=== PATIENT | male | born 1955 | race Caucasian/White ===

== ENCOUNTER → 2024-09-14 13:25 | Outpatient (REF) | payer OTHER, SELFPAY | LOC: PAVMRI 13:25 | PROVIDERS: ATTENDING PHYSICIAN Otolaryngology; FAMILY PHYSICIAN Family Medicine | DX: H90.A21 Sensorineural hearing loss, unilateral, right ear, with restricted hearing on the contralateral side (principal) | CPT/HCPCS: 70553; A9575 ==

== ENCOUNTER → 2024-09-14 15:45 | Outpatient (REF) | payer OTHER, SELFPAY ==
[2024-09-14 17:12] LABS: % Basophils 0.8 % (0-2); % Eosinophils 4.4 % (0-6); % Immature Granulocytes 0.9 % (0-0.5); % Lymphocytes 17.3 % (20.5-51.1); % Monocytes 9.7 % (1.7-9.3); % Neutrophils 66.9 % (42.2-75.2); Absolute Basophils 0.1 10^3/uL (0-0.2); Absolute Eosinophils 0.4 10^3/uL (0-0.7); Absolute Immature Granulocytes 0.1 10^3/uL (0-0.05); Absolute Lymphocytes 1.5 10^3/uL (1.2-3.4); Absolute Monocytes 0.9 10^3/uL (0.1-0.6); Absolute Neutrophils 5.9 10^3/uL (1.4-6.5); Hematocrit 41.1 % (39.0-52.0); Hemoglobin 14.5 g/dL (13.0-18.0); Mean Corp Hgb Conc. 35.3 g/dL (33.0-37.0); Mean Corpuscular Volume 79.5 fL (80.0-94.0); Mean Platelet Volume 10.5 fL (7.4-10.4); Nucleated Red Blood Cells % 0 % (-); Platelet Count 205 10^3/uL (130-400); Red Blood Cell Count 5.17 10^6/uL (4.70-6.10); Red Cell Dist. Width 13.6 % (11.5-14.5); White Blood Cell Count 8.8 10^3/uL (4.8-10.8)
[2024-09-14 17:50] LABS: Blood Urea Nitrogen 30 mg/dl (9-20)
[2024-09-14 18:21] LABS: TSH Reflex To Free T4 0.92 uIU/ml (0.47-4.68)
== END ==
LOC: REG 15:45
PROVIDERS: ATTENDING PHYSICIAN Otolaryngology; FAMILY PHYSICIAN Family Medicine
DX: H90.A21 Sensorineural hearing loss, unilateral, right ear, with restricted hearing on the contralateral side (principal)
CPT/HCPCS: 36415; 82565; 84443; 84520; 85025; 86618; 86780

== ENCOUNTER 2025-08-20 14:29 | Inpatient (IN) | payer OTHER, SELFPAY ==
[2025-08-20] VITALS (12 sets, daily range): BP systolic 145–195; BP diastolic 67–107; BMI 35.2
[2025-08-20 10:53] LABS: Hematocrit 37.1 % (39.0-52.0); Hemoglobin 12.8 g/dL (13.0-18.0); Mean Corp Hgb Conc. 34.5 g/dL (33.0-37.0); Mean Corpuscular Volume 83.7 fL (80.0-94.0); Nucleated Red Blood Cells % 0 % (-); Platelet Count 171 10^3/uL (130-400); Red Cell Dist. Width 12.9 % (11.5-14.5)
--- NOTE | 2025-08-20 10:54 | ED.GENMED ---
History of Present Illness
General
Chief Complaint: Heart Rate Problem
Source: patient
Time Seen by Provider: 08/20/25 10:24
History of Present Illness
History of Present Illness:
70-year-old manage typically gets his cardiac care at an outside institution states that he went for his routine follow-up cardiology visit was noted to be bradycardic. He had a monitor placed, and he was called yesterday and today and warned that
he need to go to the nearest hospital given that they are noting episodes of bradycardia down to the 30s. Patient says he generally feels fine. He denies dizziness, chest pain, diaphoresis, nausea, vomiting, abdominal pain. He did have a 1 hour
episode of back pain, which is his anginal equivalent, yesterday, but none since then. Otherwise patient denies any complaints.
Past History
Past History
ED Past Medical History: CAD
ED Past Surgical History: Cardiac
Social History
Tobacco: Non-smoker
Alcohol: None
Drug: None
Living: alone
Phy Exam
Physical Exam
Physical Exam:
GENERAL: Alert , in no apparent distress
EYE: pupils equal and reactive
NECK: Supple, no significant adenopathy.
ENT: o/p clr, mmm.
CARDIAC: Regular rate and rhythm .
LUNGS: Clear breath sounds bilaterally, no acute respiratory distress, no wheezes/rales/rhonchi
ABDOMEN: Soft, without focal tenderness, no r/g, no cvat
NEUROLOGICAL: Alert and oriented, no focal neuro deficits
SKIN: Warm and dry, skin intact.
MUSCULOSKELETAL: No edema, well perfused.
PSYCH: Normal and appropriate interaction.
Course
Orders/Labs/Results
Orders:
Orders
08/20/25 Lunch
NPO
Allow oral meds: Yes
Allow clear liquids: No
08/20/25 10:08
Electrocardiogram (*1) Urgent
Reason for Study: Chest Pain
EKG- Treatment ONCE
08/20/25 10:35
CMP [Comprehensive Metabolic Panel] Urgent
Complete Blood Count/With Diff Urgent
Troponin I Urgent
08/20/25 13:28
Admit/Transfer Patient As Directed
Co-Sign Provider:
Level of Care: Inpatient admission
Assign to:: IVU
Physician / Group: elena gilliland
Diagnosis: Bradycardia with second-degree heart block
Reason for Hospitalization: Bradycardia with secondary heart block
Expected length of stay greater than two midnights?: Yes
ELOS- Estimated Length of Stay in days: 4
I certify the patient meets the requirements for IP care: Yes
Code Status As Directed
Resuscitation Status: Full Code
08/20/25 13:31
PRN Pain Medication Management As Directed
May give lesser potent ordered pain med per pt: Yes
preference::
Protocol:: Medication orders for pain may be administered in a
manner that supports deferring to patient preference
when the pt is:
- Requesting an ordered lesser potent pain medication.
Least to most potent pain medications are defined
as: acetaminophen < NSAID < tramadol < opioids
(morphine, oxycodone, hydromorphone).
- Requesting a lesser dose of the same medication IF
ORDERED.
- Requesting a less intrusive route of administration
if both routes are prescribed by the provider (PO <
IV).
08/20/25 13:32
CARDIOLOGY CONSULT Routine
Consulting Provider: Asa Panda
Was physician already notified: Yes
Reason for consult: Bradycardia/second-degree heart block
08/20/25 14:42
Dextrose 50%-Water [Dextrose 50% Syringe] 12.5 grams IV [id number] PRN
Glucagon [GlucaGen] 1 mg IM PRN PRN
Lorazepam [Ativan] 0.5 mg PO TIDPRN PRN anxiety
oxycodone-acetaminophen 1 tablet PO TID PRN
08/20/25 14:42
Activity As Directed
Activity Level: As Tolerated
Bedside Glucose Monitoring As Directed
Frequency: AC&HS
Additional Instructions:: Change to q6h if pt on TPN, tube feeding or not eating
Vital Signs As Directed
Frequency: Per unit guidelines
DX Deep Vein Thrombosis Video Routine
08/20/25 16:30
Insulin Aspart Corrective Mod [Novolog Flexpen-Moderate Resistance] See Protocol SC AC
08/20/25 20:00
Brimonidine [Alphagan 0.2% Eye Drops] 1 drop RIGHT EYE BID
Dorzolamide HCl [Trusopt 2% Ophthalmic Solution] 1 drop RIGHT EYE BID
Heparin 5,000 units SC Q12
NIFEdipine EXTENDED RELEASE [Procardia Xl (Extended Release)] 60 mg PO BID
08/20/25 22:00
Latanoprost [Xalatan Ophthalmic Solution] 1 drop RIGHT EYE HS
08/21/25 02:47
Cardiovascular Evaluation IN AM
Complete Blood Count/With Diff IN AM
Comprehensive Metabolic Panel IN AM
Glycohemoglobin (HgbA1c) IN AM
08/21/25 08:00
Aspirin Low Dose EC [Aspir Low (Enteric Coated)] 81 mg PO DAILY
Atorvastatin [Lipitor] 80 mg PO DAILY
Clopidogrel Bisulfate [Plavix] 75 mg PO DAILY
Torsemide [Demadex] 10 mg PO DAILY
Valsartan [Diovan] 320 mg PO DAILY
08/22/25 06:00
Complete Blood Count/With Diff IN AM
08/23/25 06:00
Complete Blood Count/With Diff IN AM
Abnormal Lab Results
08/20/25
10:35
RBC 4.43 L 10^6/uL
(4.70-6.10)
Hgb 12.8 L g/dL
(13.0-18.0)
Hct 37.1 L %
(39.0-52.0)
MPV 10.8 H fL
(7.4-10.4)
Absolute Monos (auto) 0.8 H 10^3/uL
(0.1-0.6)
Lymphocytes % 19.7 L %
(20.5-51.1)
Monocytes % 10.5 H %
(1.7-9.3)
BUN 33 H mg/dl
(9-20)
Glucose 268 H mg/dl
(70-99)
AST 16 L U/L
(17-59)
08/20/25 10:35
08/20/25 10:35
Vital Signs
Initial and Last Documented VS:
Initial Vital Signs
Temp Pulse Resp BP Pulse Ox
98.5 F 42 16 195/98 96
08/20/25 10:01 08/20/25 10:01 08/20/25 10:01 08/20/25 10:01 08/20/25 10:01
Last Documented Vital Signs
Temp Pulse Resp BP Pulse Ox
98.5 F 60 18 164/68 100
08/21/25 07:20 08/21/25 07:20 08/21/25 07:20 08/21/25 07:19 08/21/25 07:20
*Pulse Oximetry
SaO2: 95
Oxygen Mode of Delivery: Room air
Patient hypoxic: no
*Critical Care Note
Total Time (30-74mins, 75-104mins- exclusive of procedures): Not Applicable
Update Note
Update Note:
Patient presents to the Emergency Department with ____report of bradycardia
Number and Complexity of Problems Addressed at the Encounter
� Chronic conditions affecting care:
� Acute Exacerbation and/or Progression of Chronic Illness:
� Differential Diagnosis includes: But not limited to electrolyte disorder, heart block, ACS, etc. etc.
Amount and/or Complexity of Data to be Reviewed and Analyzed
� I performed an independent evaluation of and my interpretation is:
EKG: Read by me, Mobitz 2 second-degree heart block, nonspecific S/T wave flattening, no acute ischemia
CT:
Xrays:
Laboratory Studies: Generally unremarkable, mild prerenal azotemia
Other:
� Review of other/old records reveals: Catheterization in 2010 reviewed by me, at that time no occlusive disease
� Clinical information was obtained by an independent historian:
� Prescriptions/Medications Considered but not given:
� Further testing considered but not performed:
Risk of Complications and/or Morbidity or Mortality of Patient Management
� Social determinants of health affecting care:
� Discussion with other providers (PCP, Hospitalists, Consultants, etc):
� Escalation of care including admission/observation vs risk of discharge considered: Call placed to warp knitter helper awaiting callback.
Case discussed with Dr. Griffith, patient's warp knitter helper. She states that patient has a history of CAD and diabetes and has had intermittent sinus bradycardia for which they responded by decreasing his usual beta-adriana. She suspects that he has
mild LV dysfunction to her memory. Patient has been maintained on 3.125 mg daily of Coreg, but upon a recent visit last week was noted to be in a 2-1 block without any symptoms. They discontinue the Coreg and so he has not had that in 5 to 6 days,
and put her [employer]'s monitor with intention for him to ultimately get a pacemaker. Last evening, they were alerted that patient was in third-degree heart block with rates as low as 30. Patient was asymptomatic throughout this. It was for this
reason he was referred to the emergency department with intention for pacer placement. Patient is in a second-degree Mobitz 2 here at this time and asymptomatic with a stable blood pressure. Case discussed with cardiology and will discuss with
hospitalist. Dr griffith [phone]
ED Attending Note
-
Portions of this chart may have been created with voice recognition software.� Occasional wrong word or��sound alike� substitutions may have occurred due to the inherent limitations of voice recognition software.
Discharge Plan
Departure
Patient Disposition: Admit
Date of Disposition: 08/20/25
Time of Disposition: 12:39
Admit to: Telemetry
Presentation/result/management discussed w/ accepting MD/DO: Hospitalist
Condition: Fair
Discharge Problem:
AV heart block
Interventions
Interventions:
*Risk Screen - Suicide Last Done: 08/20/25 10:01
*General Assessment Last Done: 08/20/25 10:01
*Neglect/Abuse Screening Last Done: 08/20/25 10:01
*ED- Fall Risk Assessment Last Done: 08/20/25 14:31
*ED COVID-19 Vaccine History Last Done: 08/20/25 11:09
*Nursing Disposition Last Done: 08/20/25 14:31
ED- Cardiac Assessment Last Done: 08/20/25 11:09
ED- Pulmonary Assessment Last Done: 08/20/25 11:09
Discharge Date and Time
Discharge Date/Time: 08/20/25 14:54
[2025-08-20 11:06] LABS: ALT (SGPT) 19 U/L (0-50); AST (SGOT) 16 U/L (17-59); Albumin 4.1 g/dl (3.5-5.0); Alkaline Phosphatase 103 U/L (38-126); Blood Urea Nitrogen 33 mg/dl (9-20); Calcium 9.1 mg/dl (8.4-10.2); Carbon Dioxide 27 mmol/L (22-30); Chloride 105 mmol/L (98-107); Glucose 268 mg/dl (70-99); Potassium 4.2 mmol/L (3.5-5.1); Sodium 138 mmol/L (135-145); Total Protein 6.7 g/dl (6.3-8.2); eGFR > 60.00
[2025-08-20 11:12] LABS: Troponin I 0.022 ng/ml
--- NOTE | 2025-08-20 12:44 | CON.CAR ---
Addendum entered and electronically signed by Asa Panda MD 08/20/25 16:28:
I saw and examined the patient.
The SCREW MACHINE ADJUSTER [employer]ATIC's note was reviewed and I agree with the note.
Comment:
70-year-old man with history of coronary artery disease (MILTON x 3 to LAD 2023), diabetes, hypertension, hyperlipidemia, and type I second-degree AV block who presents with concern for complete heart block. Patient saw his outpatient swing driver
(Dr. Moira Martin, [facility]) on 08/16 at which time he was in 2-1 AV block on ECG. He was asymptomatic. Carvedilol was stopped and a 7-day ambulatory monitor was ordered. He started the monitor on Tuesday and was called overnight last night by
the on-call swing driver saying that he was in complete heart block with heart rate in the 20s to 30s and should present to the ER. He reports occasional issues with feeling off balance which he has been attributing to right eye vision
imperfections. He had 1 episode of syncope 3 years ago while standing in a meeting at work but none since then. I personally reviewed his telemetry in the ER which shows some type II second-degree heart block and some complete heart block. He has
a narrow junctional escape rhythm and is asymptomatic at rest.
Physical exam notable for slow rate, regular rhythm, no murmurs, bibasilar crackles of the lungs, chronic lower extremity edema
I personally reviewed his ECG which shows 2-1 AV conduction, LAFB, old pam-septal infarct
He has intermittent complete heart block with a narrow junctional escape rhythm. He is asymptomatic at rest. No indication for emergent pacemaker at this time but this diagnosis is a threat to life and requires continuous telemetry monitoring. We
will plan for pacemaker placement tomorrow. Please keep n.p.o. past midnight. Hold all AV isak blocking agents.
Hold Plavix for PPM tomorrow. Otherwise continue medical therapy for CAD and hypertension.
Original Note:
Consultation
Consultation Request
Date/Time Consultation Requested: 08/20/2025
Date/Time Consultation Performed: 08/20/2025
Requesting Provider: Kathleen Trujillo
Performing Provider: Asa Panda
Reason for Consultation: Bradycardia
Medical History
-
Chief Complaint: Bradycardia/Heart Block
History of Present Illness:
Dimitri is a 70 year old male with a past medical history of CAD s/p [place] w/ LAD stenting x3, now on DAPT, hypertension, poorly controlled IDDM, hyperlipidemia who presented from home after being called by Electric Motor And Generator Assembler for concerns of complete heart
block/bradycardia.
He had a recent visit on 08/16 with his Electric Motor And Generator Assembler Dr. Martin where he was found to be in 2nd Degree AV block 2:1 as outpatient. He has a remote history of symptomatic bradycardia on higher doses of BB and on this most recent visit he was told to
stop his carvedilol 3.125mg BID and wear a heart monitor. Dr. Martin spoke with Dr. Ta to schedule the patient for elective pacemaker placement. He received several calls for bradycardia and in the early am of 08/20 had reported 3rd degree
heart block as seen on Zio monitor. Cardiology preconstruction manager reached out to him and told him to come to the hospital immediately. There was reportedly no strip sent to the preconstruction manager [employer] Generator Assembler to review. The pt reports no symptoms at that time of chest
pain, sob, palpitations, dizziness, lightheadedness, nausea, vomiting, or syncope. He does report some balance changes which are chronic due to hearing dysfunction and eye problems for which he follows up with specialists.
Chemistry and CBC were unremarkable. Patient was bradycardic on arrival but asymptomatic and hemodynamically stable. Troponins were negative. Cardiology was consulted for evaluation for pacemaker placement.
Past Medical History
Past Medical History: Other (see hpi)
Past Surgical History: Other (LAD stenting, eye surgeries, multiple resections of the liver, lung, skin, bowel for metastatic melanoma in 2000)
Social History
Tobacco: Non-Smoker
Alcohol: Occasional
Drug: None
Employment: Not Employed
Family History
Family History: Reviewed & Not Pertinent
Allergies / Home Medications
Allergy/AdvReac Type Severity Reaction Status Date / Time
Iodinated Contrast Media (IV Allergy Rash Verified 03/19/11 11:07
Dye, Iodine Containing)
�Medication �Instructions �Recorded �Confirmed �Type
FLAXSEED OIL 1,200 mg PO DAILY 03/18/11 03/18/11 History
irbesartan 300 1 tab PO DAILY 03/18/11 03/18/11 History
mg-hydrochlorothiazide 12.5 mg
tablet (Avalide)
lorazepam 1 mg tablet 1 mg PO TID 03/18/11 03/18/11 History
metoprolol succinate 25 mg 25 mg PO DAILY 03/18/11 03/18/11 History
tablet,extended release 24 hr
[id number] 1,200 mg PO DAILY 03/18/11 03/18/11 History
oil 360 mg-1,200 mg capsule
Prednisone CATH 03/19/11 03/19/11 History
aspirin 81 mg tablet,delayed 81 mg PO DAILY 03/19/11 03/19/11 History
release
aspirin 81 mg tablet,delayed 162 mg PO CATH 03/19/11 03/19/11 History
release
diphenhydramine HCl 25 mg capsule 25 mg PO CATH 03/19/11 03/19/11 History
(Banophen)
vitamin A-vitamin C-vit E-min 1 cap PO DAILY 03/19/11 03/19/11 History
capsule
Review of Systems
-
History Source: Patient
All other systems: Negative unless noted
Physical Exam
Vital Signs
Temp Pulse Resp BP Pulse Ox
98.5 F 48 16 145/79 94
08/20/25 10:01 08/20/25 12:00 08/20/25 12:03 08/20/25 12:00 08/20/25 12:00
Lab Results
08/20/25 10:35
08/20/25 10:35
Troponin I 0.022 ng/ml 08/20/25 10:35
Physical Exam
General: Well Developed, Well Nourished, No Apparent Distress and Comfortable
HEENT: Normocephalic, Anicteric, Moist Mucous Membranes and Atraumatic
Respiratory: Clear and Non Labored Respirations; Negative Wheezes, Crackles or Rhonchi
Cardiac: S1/S2, Irregular Rhythm and Other (Zio monitor on the L upper chest wall); Negative Murmur or Rub
Breast: N/A
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
Genito-urinary: No Costovertebral Tender
Musculoskeletal: No Clubbing, No Cyanosis and Edema (1+ pitting edema, chronic )
Skin: Warm and Dry
Neuro: AO x 3
Psych: Calm
Impression / Plan
-
Dimitri is a 70 year old male with a past medical history of CAD s/p STEMI w/ LAD stenting x3, now on DAPT, hypertension, poorly controlled IDDM, hyperlipidemia who presented from home after being called by Electric [employer] And Generator Assembler for concerns of complete heart
block/bradycardia found on Zio alarm security or surveillance monitor.
# Complete Heart Block
- ECG on admission showed 2:1 AV conduction block.
- Further tele review revealed Mobitz Type I/Wenckebach rhythm with periods of complete heart block
- no current hemodynamic instability or symptoms requiring emergent pacemaker placement
- Spoke with Dr. Randy LANDEROS who reviewed Tele and agreed with pacemaker placement
- Patient will get pacemaker this admission, tentatively for tomorrow, though official time TBD
- Diabetic/Low cholesterol diet for tonight, npo with ice chips and sips after midnight pending pacemaker placement
- Tele monitoring
# CAD, s/p STEMI w/ LAD stenting
# HLD
# Essential Hypertension
- C/w statin
- hold aspirin/Plavix, last dose morning 08/20
- stop carvedilol (last OV from swing driver shows d/c for bradycardia/2nd degree block)
- hold all other antihypertensives at this time
--- NOTE | 2025-08-20 12:49 | HPS.HSE ---
Addendum entered and electronically signed by RAMA France 08/20/25 15:33:
Heart block
Patient for pacemaker in a.m. 08/21/2025
May have 1800 ADA diet tonight
N.p.o. after midnight
Addendum entered and electronically signed by Dylan Lopez MD 08/20/25 14:37:
This is an addendum to H&P written by July Warren on 08/20/2025.
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
lung, small intestine, left groin status post chemotherapy and trial drug, obesity, presenting with bradycardia.
He was found to be bradycardic at [employer] [facility] [employer] office 2 days ago and put Holter monitor he was called into the hospital today because Holter monitor picked up third-degree heart block.
Patient asymptomatic without any chest pain, shortness of breath, dizziness or syncope.
Vital�signs show blood pressure 195/98 which is improved to 150. �Heart rate of 40s.
EKG shows type II block with 2-1 conduction.
Labs unremarkable.
Patient with asymptomatic type II heart block with 2-1 conduction. �Hold Coreg and Imdur. �Hold diabetic medications. �Cardiology consulted for potential pacemaker. �N.p.o. for now.
Original Note:
Family Physician
-
Family Physician: Herbert Tsai
Chief Complaint
-
Bradycardia per playground monitor at home
History of Present Illness
70-year-old male who was at a routine follow-up at his [employer] where he was noted to be bradycardic. He had a monitor placed and was advised yesterday and today to go to the nearest hospital due to episodes of bradycardia into the 30s. His
heart monitor showed third-degree heart block overnight however today here he is currently stable with Mobitz type II heart block. He reports his son typically takes care of his medications and puts it in containers for him. He states his son came
yesterday laid out all of his medications he could not recall which ones to stop. He believes this a.m. he did take his carvedilol and Imdur along with nifedipine and valsartan. He did not take his Tresiba 32 units. He denies headache, dizziness,
lightheadedness, chest pain, palpitations, diaphoresis, shortness of breath, cough nausea, vomiting, diarrhea, abdominal pain, urinary symptoms. He does report having 1 hour of back pain yesterday that has resolved. He has past medical history of
HTN, CAD/CA/stents LAD, ALS, DM 2, blind right eye due to retinal detachment, chronic abdominal pain due to prior small bowel resection, stage IV melanoma in 2000 with mets to lung, small intestine, left groin did chemotherapy and trial drug for 12
months that was recalled he has been in full remission
Medical History
Past Medical History
Past Medical History: Reports Other
Additional Past Medical History:
HTN
CAD/CA/stents LAD 2022
ALS
DM 2
blind right eye due to retinal detachment
chronic abdominal pain due to prior small bowel resection
stage IV melanoma in 2000 with mets to lung, small intestine, left groin did chemotherapy and trial drug for 12 months that was recalled he has been in full remission
Class II obesity
Past Surgical History: Reports Other
Additional Past Surgical History:
Partial lung resection secondary to melanoma
Partial small intestine resection secondary to melanoma
Left groin lymph nodes removed secondary to lymphoma
Social History
Tobacco: Non-smoker
Alcohol: None
Drug: None
Personal:
Living: Alone
Employment: Retired
Family History
Family History: Not pertinent
Allergies / Home Medications
Allergies reflects when Allergies were last updated in [employer].
Home Medications with original date entered in [employer]
Allergy/Medication List:
Allergies
Allergy/AdvReac Type Severity Reaction Status Date / Time
Iodinated Contrast Media (IV Allergy Rash Verified 03/19/11 11:07
Dye, Iodine Containing)
Home Medications
aspirin 81 mg tablet,delayed release 81 mg PO DAILY 03/19/11
atorvastatin 80 mg tablet 80 mg PO DAILY 08/20/25
brimonidine 0.2 % eye drops 1 drp RIGHT EYE BID 08/20/25
carvedilol 3.125 mg tablet 3.125 mg PO BID 08/20/25
clopidogrel 75 mg tablet 75 mg PO DAILY 08/20/25
dorzolamide 22.3 mg-timolol 6.8 mg/mL eye drops 1 drp RIGHT EYE BID 08/20/25
dulaglutide 3 mg/0.5 mL subcutaneous pen injector (Trulicity) 3 mg SC TH 08/20/25
insulin degludec 100 unit/mL (3 mL) subcutaneous pen 32 unit SC DAILY 08/20/25
isosorbide mononitrate 30 mg tablet,extended release 24 hr 30 mg PO DAILY 08/20/25
latanoprost 0.005 % eye drops 1 drp RIGHT EYE HS 08/20/25
lorazepam 0.5 mg tablet 0.5 mg PO TIDPRN PRN anxiety 08/20/25
nifedipine 60 mg tablet,extended release 60 mg PO BID 08/20/25
oxycodone-acetaminophen 10 mg-325 mg tablet 1 tab PO TID PRN mod pain 08/20/25
sitagliptin phos 50 mg-metformin ER 1,000 mg tablet,extend rel 24h mp (Janumet XR) 1 tab PO BID 08/20/25
torsemide 10 mg tablet 10 mg PO DAILY 08/20/25
valsartan 320 mg tablet 320 mg PO DAILY 08/20/25
Review of Systems
-
History Source: Patient
A 12 point ROS was completed and negative except as noted: Yes
Constitutional: Denies Fever or Chills
EENT: Denies Sore Throat or Runny Nose
Respiratory: Denies Cough or Trouble Breathing
Cardiac: Denies Chest Pain, Diaphoresis, Palpitations or Syncope
Abdomen/GI: Denies Abdominal Pain, Nausea, Vomiting, Diarrhea, Constipated, Bloody Stools or Black Stools
: Denies Dysuria, Frequency, Flank Pain, Incontinence, Difficulty Voiding or Urgency
Musculoskeletal: Reports Edema (+1 bilateral lower leg); Denies Joint Pain
Skin: Denies Itching or Rash
Neurological: Denies Dizzy, Headache or Weakness
Endocrine: Reports No Symptoms
Hematologic/Lymphatic: Reports No Symptoms
Psych: Reports Calm
Physical Exam
Vital Signs
Vital Signs
Temp Pulse Resp BP Pulse Ox
98.5 F 48 16 145/79 94
08/20/25 10:01 08/20/25 12:00 08/20/25 12:03 08/20/25 12:00 08/20/25 12:00
Physical Exam
General: Comfortable and Conversant; No Pain, Fever or Chills
HEENT: NormoCephalic, Anicteric, Moist mucous membranes, PERRLA, Nittany Conjunctivae and No Ptosis
Respiratory: Clear; No Wheezes, Rales or Rhonchi
Cardiac: S1/S2, Bradycardia (Heart rate 44 bpm to 60 bpm on monitor second-degree heart block) and Peripheral Edema (Plus on bilateral lower legs); No Murmur, Rub or Gallop
Breast: Deferred by me
GI: Soft, Normal Bowel Sounds and Other (Protuberant abdomen unable to palpate liver and spleen)
Rectal: Deferred by Provider
Genito-urinary: Deferred by me
Musculoskeletal: No Clubbing, No Cyanosis and No Edema
Skin: Warm and Dry; No Rash
Neuro: AO x 3, No Motor Deficits, Nonfocal/grossly intact, Cranial Nerves Intact, No Sensory Deficits and Other (Blind); No Slurred Speech, Facial Droop, Tremors or Sedated
Psych: Calm
Laboratory Results
-
08/20/25 10:35
08/20/25 10:35
Laboratory Results
Total Bilirubin 0.6 mg/dl (0.2-1.3) 08/20/25 10:35
AST 16 U/L (17-59) L 08/20/25 10:35
ALT 19 U/L (0-50) 08/20/25 10:35
Alkaline Phosphatase 103 U/L (38-126) 08/20/25 10:35
Troponin I 0.022 ng/ml 08/20/25 10:35
Data Reviewed
-
Lab Data: Labs Reviewed by me
Impression/Plan
-
Impression/plan:
Admit to IVU
#Second-degree heart block with episodes of bradycardia
Heart rate currently 48 bpm
- Consult cardiology Dr. Richter aware
- Pacer pads to be applied to chest
-Patient took carvedilol, Imdur, nifedipine this a.m.
-Hold carvedilol, Imdur
EKG sinus rhythm with second-degree AV block 43 bpm, QTc 387 MS
#HTN
BP 145/79
Hold Imdur
-Continue valsartan 320 mg daily
#CAD/CA/cardiac stents x3 LAD
-Continue aspirin 81 mg daily, atorvastatin 80 mg daily
-Hold metoprolol
- Patient unsure if he still taking Plavix 75 mg daily it was noted to be filled in April
#DM2 with hyperglycemia
Blood sugar 268
-Accu-Cheks with SSI, check HgbA1c
-Hold Trulicity 3 mg subcu today patient typically takes on
-Patient held Tresiba 32 units this a.m.
- Hold Janumet today as patient is n.p.o.
#Anxiety
Continue lorazepam 0.5 mg p.o. 3 times daily as needed
#ALS
#Glaucoma
# blind right eye due to retinal detachment
-Continue eyedrops
#Chronic pain from small bowel resection years ago on chronic opiates
-Patient takes oxycodone/acetaminophen 10 /325 mg 3 times daily as needed pain
#stage IV melanoma in 2000 with mets to lung, small intestine, left groin did chemotherapy and trial drug for 12 months that was recalled he has been in full remission
#Class II obesity
Affects all aspects of care
Weight loss recommended
DVT prophylaxis
Subcu heparin
Full code
--- NOTE | 2025-08-20 15:28 | PTCARENOTE ---
Patient admitted from the ED with bradycardia, has been NPO since 0700. Oriented to the room and plan of care. Dr. Padilla in to see the patient and plan is to do pacemaker tomorrow. Resting in bed, patient notifying his family, call dorado in reach.
[2025-08-20 15:51] LABS: Glucose - Point of Care 233 mg/dl (70-99)
--- NOTE | 2025-08-20 16:01 | CM ---
Chart reviewed. Patient is independent of ADLS, has a roommate who lives with him, 1 STH, 3-4 VERONICA, 0 DME. Patient also with a supportive friend, Lonnie. Plan is for the patient to return home. CM to follow
[2025-08-20] MEDS: NOVOLOG FLEXPEN-MODERATE RESISTANCE 3 UNITS SC (16:47)
[2025-08-20] MEDS: PROCARDIA XL (EXTENDED RELEASE) 60 MG PO (18:34)
[2025-08-20] MEDS: ALPHAGAN 0.2% EYE DROPS 1 DROP RIGHT EYE (18:35)
[2025-08-20] MEDS: TRUSOPT 2% OPHTHALMIC SOLUTION 1 DROP RIGHT EYE (18:35)
--- NOTE | 2025-08-20 18:40 | PTCARENOTE ---
BP elevated at 192/107, TT to aamir Escobar to give 2000 dose of PO nifedipine now and will recheck. Patient is aware he is to be NPO after midnight for pacer.
[2025-08-20] MEDS: HEPARIN 5000 UNITS SC (19:55)
[2025-08-20] MEDS: TIMOPTIC 0.5% OPHTHALMIC SOLUTION 1 DROP RIGHT EYE (20:02)
[2025-08-20] MEDS: ATIVAN 0.5 MG PO (20:04)
[2025-08-20] MEDS: XALATAN OPHTHALMIC SOLUTION 1 DROP RIGHT EYE (22:24)
[2025-08-20 22:25] LABS: Glucose - Point of Care 213 mg/dl (70-99)
[2025-08-21] VITALS (32 sets, daily range): BP systolic 115–196; BP diastolic 68–118
--- NOTE | 2025-08-21 00:13 | PTCARENOTE ---
Addendum entered by Lissa Lebron RN 08/21/25 00:42:
Captured VS from dayshift, 1400 to current.
Original Note:
Received pt at change of shift resting in bed. 2nd degree type 2 on tele per previous EKG. Irregular HR noted, 50's-70's. BP 159/74. Mariela Gamez, SPECIAL EFFECTS DESIGNER made aware. No further orders at this time. pt denies any lightheadedness/dizziness, CP or SOB
at this time. pt requesting PRN Ativan, administered per order--see JAN. Informed pt of NPO status after midnight, pt verbalizes understanding. Encouraged pt to call for assistance ambulating. Call dorado within reach.
[2025-08-21 03:06] LABS: Hematocrit 38.9 % (39.0-52.0); Hemoglobin 13.7 g/dL (13.0-18.0); Mean Corp Hgb Conc. 35.2 g/dL (33.0-37.0); Mean Corpuscular Volume 80.7 fL (80.0-94.0); Nucleated Red Blood Cells % 0 % (-); Platelet Count 179 10^3/uL (130-400); Red Cell Dist. Width 13.0 % (11.5-14.5)
[2025-08-21] MEDS: PROCARDIA XL (EXTENDED RELEASE) 60 MG PO ×2 (03:27→20:35)
--- NOTE | 2025-08-21 03:32 | PTCARENOTE ---
pt with BP of 184/80. On phone with Mariela Gamez NP. Verbal order obtained to administer AM dose of Nifedipine now. HR 40's-60. JIGMAN instructed RN ok to give despite hold parameters on HR. pt encouraged to call RN with any questions/concerns.
Call dorado within reach.
[2025-08-21 03:45] LABS: ALT (SGPT) 18 U/L (0-50); AST (SGOT) 18 U/L (17-59); Albumin 4.2 g/dl (3.5-5.0); Alkaline Phosphatase 90 U/L (38-126); Blood Urea Nitrogen 24 mg/dl (9-20); Calcium 9.4 mg/dl (8.4-10.2); Carbon Dioxide 23 mmol/L (22-30); Chloride 110 mmol/L (98-107); Estimated Creatinine Clearance 98 ml/min; Glucose 154 mg/dl (70-99); HDL Cholesterol 36 mg/dl; LDL Cholesterol, Calculated 27 mg/dl; Potassium 3.9 mmol/L (3.5-5.1); Sodium 141 mmol/L (135-145); Total Protein 6.8 g/dl (6.3-8.2); Very Low Density Lipoprotein 37 mg/dl (0-30); eGFR > 60.00
[2025-08-21 05:47] LABS: Glucose - Point of Care 183 mg/dl (70-99)
[2025-08-21] MEDS: PROCARDIA XL (EXTENDED RELEASE) PO (05:56)
[2025-08-21] MEDS: DIOVAN 320 MG PO (06:31)
[2025-08-21] MEDS: TRUSOPT 2% OPHTHALMIC SOLUTION 1 DROP RIGHT EYE ×2 (07:58→20:33)
[2025-08-21] MEDS: ALPHAGAN 0.2% EYE DROPS 1 DROP RIGHT EYE ×2 (07:58→20:33)
[2025-08-21] MEDS: TIMOPTIC 0.5% OPHTHALMIC SOLUTION 1 DROP RIGHT EYE (07:58)
--- NOTE | 2025-08-21 08:15 | W.PN.CD ---
Today's Communication / Plan
-
- PPM today
- Pt is in agreement.
Impression / Plan
-
Dimitri is a 70 year old male with a past medical history of CAD s/p STEMI w/ LAD stenting x3, now on DAPT, hypertension, poorly controlled IDDM, hyperlipidemia who presented from home after being called by Manager [employer] Relations for concerns of complete heart
block/bradycardia found on [employer] vehicle monitor technician.
# Complete Heart Block
- ECG on admission showed 2:1 AV conduction block.
- Overnight mostly wenckebach and 2:1. There are epsiodes of Mobitz 2 rhythm as well. He was called in to the hospital due to intermittent complete heart block.
- director long term care bradycardia that had been symptomatic that prompted the need for Holter. He was told that he needs a pacemaker a year ago.
- Further tele review revealed Mobitz Type I/Wenckebach rhythm with periods of complete heart block
- no current hemodynamic instability or symptoms requiring emergent pacemaker placement
- PPM today.
- Tele monitoring
- Resume BB - Coreg post PPM implant.
# CAD, s/p STEMI w/ LAD stenting
# HLD
# Essential Hypertension
- C/w statin
- hold aspirin/Plavix, last dose morning 08/20
- Holding carvedilol (last OV from stone r[facility]her shows d/c for bradycardia/2nd degree block)
- hold all other antihypertensives at this time
Physical Exam
Vital Signs/Labs
Vital Signs
Temp Pulse Resp BP Pulse Ox
98.5 F 60 18 164/68 100
08/21/25 07:20 08/21/25 07:20 08/21/25 07:20 08/21/25 07:19 08/21/25 07:20
08/20/25 08/21/25 08/22/25
06:59 06:59 06:59
Actual Weight 111.4 kg
08/21/25 02:47
08/21/25 02:47
Triglycerides 186 mg/dl (10-149) H 08/21/25 02:47
LDL Cholesterol, Calc 27 mg/dl 08/21/25 02:47
VLDL Cholesterol, Calc 37 mg/dl (0-30) H 08/21/25 02:47
HDL Cholesterol 36 mg/dl 08/21/25 02:47
LAB Results
08/20/25
10:35
Troponin I 0.022
Physical Exam
Constitutional: No acute distress and Comfortable
EENT: Anicteric and Moist mucous membranes
Cardiovascular: Rhythm & rate is regular, Pedal edema is absent and JVD pressure is normal
Respiratory: Respiratory effort normal, Lungs clear to auscul. and Wheeze Absent
GI: Soft, Non tender and Normal bowel sounds
Neuro/Psych: Alert, Oriented and AO x 3
Other: Cardiac Device Site
Data Reviewed
-
Date of Service: August 21, 2025
Medical Decision Making: Reviewed Test Results, Test Interpretation and Review of Case with other Provider
EKG: Tracing Personally Visualized and interpreted
Echo: Report Reviewed by me
Medical Tests (PFT, Pathology etc): Discussed with Physician and Discussed with Patient
Labs: Labs Reviewed by me
Old Records: Reviewed
[2025-08-21] MEDS: DEMADEX 10 MG PO (08:33)
[2025-08-21] MEDS: NOVOLOG FLEXPEN-MODERATE RESISTANCE SC ×2 (08:33→11:30)
[2025-08-21] MEDS: LIPITOR 80 MG PO (08:33)
[2025-08-21] MEDS: ATIVAN 0.5 MG PO ×2 (08:33→20:53)
[2025-08-21] MEDS: ASPIR LOW (ENTERIC COATED) PO (08:34)
[2025-08-21] MEDS: HEPARIN SC (08:37)
[2025-08-21 09:40] LABS: Glycohemoglobin (HgbA1c) 10.0 % (4.0-5.6)
--- NOTE | 2025-08-21 10:07 | W.PN.HOSP.TC ---
Today's Communication/Plan
-
Pacer today
Assessment / Plan
Assessment / Plan
70-year-old with bradycardia. He was given a Holter monitor which picked up third-degree heart block and was advised to come to the hospital.
CVS: S1-S2 mackenzie
Chest: CTA B/L
Abdomen: Soft, NT / Bowel sounds present
Extremities: No edema, normal pulses
SENIOR INTERACTION DESIGNER: wearing sun glasses
# Bradycardia with complete heart block
For pacemaker placement today on 08/21/2025
# History of coronary artery disease, CT with LAD stents in 2022-continue statin, Imdur, valsartan. Hold Coreg, aspirin Plavix per cardiology resume post pacemaker
# Diabetes hemoglobin A1c-
Patient is on Janumet, Insulin degludec 30 units daily, Trulicity 3 mg on
Hold Janumet.
Long-acting insulin 20 units at bedtime along with sliding scale coverage for now
# Hyperlipidemia-continue atorvastatin
# Hypertension-continue nifedipine, valsartan. Hold Coreg
# Chronic abdominal pain with narcotic dependence-continue as needed oxycodone
# Stage IV melanoma in 2000 with mets to lung, small intestine, left inguinal area with partial lung resection, chemotherapy and a trial drug for 12 months and in full remission
# H/O retinal detachment right eye
?Glaucoma-hold dorzolamide-Timolol until after pacemaker. Continue latanoprost, brimonidine
# Anxiety-continue as needed lorazepam
# Obesity with a BMI of 35
# DVT prophylaxis- DONA
# Full code
D/W RN
Part of this note was created using voice recognition system. Occasional wrong word or��sound alike� substitutions may have inadvertently occurred due to the inherent limitations of voice recognition software. If noted kindly bring it to my
attention for correction.
Anticipated Discharge: Within 24 hours
Subjective/Interval History
-
Date of Service: August 21, 2025
Objective Data
-
Labs:
Laboratory Results
08/21/25
02:47
WBC 7.9
Hgb 13.7
Hct 38.9 L
Plt Count 179
Sodium 141
Potassium 3.9
Chloride 110 H
Carbon Dioxide 23
BUN 24 H
Creatinine 0.9
Glucose 154 H
Calcium 9.4
Total Bilirubin 1.1
AST 18
ALT 18
Alkaline Phosphatase 90
Vital Signs:
Vital Signs
Temp Pulse Resp BP Pulse Ox
98.5 F 60 18 164/68 100
08/21/25 07:20 08/21/25 07:20 08/21/25 07:20 08/21/25 07:19 08/21/25 07:20
I&O
08/20/25 08/21/25 08/22/25
06:59 06:59 06:59
Intake Total 360 / 360
Balance 360 / 360
--- NOTE | 2025-08-21 11:46 | PTCARENOTE ---
Assumed care of the pt @ 0700. Pt is AAOx3 2nd degree type 2 HB on the monitor bp stable. Pt was prepped for upcoming PPM procedure with clippers and CHG wipes done. POC discussed with pt. Call dorado within reach
[2025-08-21 12:03] LABS: Glucose - Point of Care 209 mg/dl (70-99)
[2025-08-21] MEDS: BENADRYL 50 MG IV (13:00)
[2025-08-21] MEDS: SOLU-CORTEF 200 MG IV (13:00)
--- NOTE | 2025-08-21 14:07 | PN.CDI ---
Addendum entered and electronically signed by Ralf Arellano MD 08/22/25 13:14:
Pls ask who documented
My documentation is complete
Original Note:
CDI
- -
CDI:
Physician Documentation Request
Admit Date: 08/20/25 14:29
Dear Doctor Eileen,
Please review the following and provide your response in the progress notes.
Clinical Indicators:
The diagnosis of ALS was documented on 08/20 H&P but is not consistently noted in subsequent documentation.
- 08/20 H&P pmh ALS
Please clarify/update the status of the ALS
____ - ALS was present on admission
____ - ALS was ruled out
____ - ALS is still a likely, suspected, probable diagnosis
____ - Other (please specify)
Use of terms such as suspected, likely, concern for, or probable (associated with a specific diagnosis that is being evaluated, monitored, or treated as if it exists) are acceptable and can be coded in the inpatient setting, when documented at the
time of discharge.
Thank you,
Shana Cedeno RN
CDI Specialist
Please use your independent medical judgment in providing your response.
[2025-08-21 14:56] LABS: Glucose - Point of Care 217 mg/dl (70-99)
--- NOTE | 2025-08-21 15:01 | ITS.CL.PACE ---
Business Systems Manager - Pacemaker Implant
Pacemaker Implant
Procedure Report:
PACEMAKER IMPLANT REPORT
Date of Procedure: August 21, 2025
Procedure:
Implantation of dual-chamber permanent pacemaker utilizing the left bundle branch for conduction system pacing
Indication/Diagnosis:
Non-reversible symptomatic bradycardia due to second degree as well as periods of third-degree/complete atrioventricular block.
Review of records shows that he has had a long history of bradycardia that has been symptomatic prompting the need for outpatient monitoring. By report, he was told about need for permanent pacemaking approximately 1 year ago. Outpatient
monitoring has demonstrated second-degree as well as third-degree, complete heart block which has been symptomatic.
After informed consent was obtained, 'time out' was called and confirmed, the patient was prepped and draped in a sterile fashion. Lidocaine with epi was used for local anesthesia. Central venous access was obtained via subclavian venipuncture. An
incision was made along the left chest and a pre-pectoral pocket was formed. Using a Seldinger technique and peel-away sheaths, the pacing leads were placed under fluoroscopic guidance.
Fluoroscopy was used to determine likely anatomic site for left bundle branch pacing. The Medtronic C315 sheath was used to deliver the Medtronic 3830 Selectsecure pacing lead with the helix exposed just exposed from the sheath tip during continuous
monitoring when pacemapping the septum during gentle clockwise rotation to obtain a paced QRS morphology of a W pattern in lead V1. Once the suspected optimal site was identified, lead deployment was performed with several rapid rotations as paced
QRS morphology was intermittently monitored until a paced QRS complex in lead V1 demonstrated development of an R wave [ ] (qR or rSR).
Unipolar pacing impedance dropped by approximately 100 Ohms suggesting it had reached the left ventricular subendocardial.
Stable VEgm injury current is present throughout final lead position including at end of case, suggesting there was no perforation through the septum into the LV cavity.
Unipolar pacing impedance is 1000 Ohms
Unipolar pacing threshold is stable at 0.5 V @0.4 ms.
Final conduction system paced QRS complex duration is 98 ms
LVAT is 80 ms and peak V5 -> peak V1 timing is 49 ms
There is QRS transition to LVSP / selective LBBP during threshold testing
Right atrial lead was placed at the RAA.
Once testing (see below) showed adequate and stable function, the leads were secured using the suture sleeves. The pocket was liberally irrigated with antibiotic solution. The leads were connected to the generator header and the leads and
generator were placed within the pocket. Fluoroscopy confirmed stable lead position. The pocket was closed in the typical fashion.
Antibiotic pouch was used
Fluoroscopy was used to guide lead placement.
IMPLANTS:
Medtronic [id number], SN: [id number], Left Pectoral
RA: Medtronic 5076-45, SN: [id number], RAA
Left Bundle: Medtronic 3830 , SN:[id number], Interventricular septum at LBB
DEVICE TESTING:
Sensing: RA 1.8 mV, RV 11 mV
Capture: RA 2.25 V@0.4ms, RV 0.5 V@0.4ms
Ohms: RA 485, RV 950 (bipolar)
FINAL PROGRAMMING
Josep Pacing: DDDR 60-130 ppm
COMPLICATIONS:
None
CONCLUSIONS:
Successful implant of dual chamber permanent pacemaker utilizing Left Bundle Branch conduction system capture for ventricular resynchronization pacing.
RECOMMENDATIONS:
1. Post-op care (tele, CXR, IV abx)
2. In-Office wound check in 5-7 days
3. Outpatient follow-up to should continue with his outpatient bail bondsman, Dr. Moira Martin
Copy to: Dr. Moira Martin
--- NOTE | 2025-08-21 15:37 | CM ---
Reviewed chart. Mr. Salmeron had his pacemaker implant today. Prior to admission he has a roommate that resides with him in a one story home with three steps to enter. Prior to admission he was independent with adls. Medical work-up in progress.
The discharge plan is to return home with [facility] if indicated when medically stable.
[2025-08-21] MEDS: APRESOLINE 10 MG IV (16:13)
[2025-08-21] MEDS: ROXICODONE 10 MG PO ×2 (16:38→21:32)
[2025-08-21 16:41] LABS: Glucose - Point of Care 213 mg/dl (70-99)
[2025-08-21] MEDS: NOVOLOG FLEXPEN-MODERATE RESISTANCE 3 UNITS SC (16:41)
[2025-08-21] MEDS: HEPARIN 5000 UNITS SC (20:32)
[2025-08-21] MEDS: COREG 3.125 MG PO (20:32)
[2025-08-21] MEDS: ANCEF 5 IV (20:33)
[2025-08-21] MEDS: XALATAN OPHTHALMIC SOLUTION 1 DROP RIGHT EYE (21:33)
[2025-08-21] MEDS: APRESOLINE 5 MG IV (21:39)
[2025-08-21 21:50] LABS: Glucose - Point of Care 243 mg/dl (70-99)
[2025-08-21] MEDS: LANTUS 0.2 UNITS SC (22:04)
[2025-08-21] MEDS: ULTRAM 25 MG PO (23:45)
[2025-08-22] VITALS (11 sets, daily range): BP systolic 122–181; BP diastolic 68–99
[2025-08-22] MEDS: APRESOLINE 5 MG IV ×2 (01:09→05:17)
[2025-08-22] MEDS: DILAUDID 0.25 MG IV ×2 (01:52→03:35)
[2025-08-22 04:10] LABS: Hematocrit 41.1 % (39.0-52.0); Hemoglobin 14.4 g/dL (13.0-18.0); Mean Corp Hgb Conc. 35.0 g/dL (33.0-37.0); Mean Corpuscular Volume 83.0 fL (80.0-94.0); Nucleated Red Blood Cells % 0 % (-); Platelet Count 187 10^3/uL (130-400); Red Cell Dist. Width 13.2 % (11.5-14.5)
[2025-08-22 04:39] LABS: Blood Urea Nitrogen 17 mg/dl (9-20); Calcium 9.2 mg/dl (8.4-10.2); Carbon Dioxide 23 mmol/L (22-30); Chloride 108 mmol/L (98-107); Estimated Creatinine Clearance 80 ml/min; Glucose 167 mg/dl (70-99); Magnesium 1.8 mg/dl (1.6-2.3); Potassium 3.7 mmol/L (3.5-5.1); Sodium 142 mmol/L (135-145); eGFR > 60.00
[2025-08-22] MEDS: ANCEF 5 IV (05:10)
--- NOTE | 2025-08-22 05:29 | PTCARENOTE ---
Received pt at change of shift resting in bed. V-paced on tele, HR 80's-90's. pt denies CP or SOB at this time. pt c/o sharp, constant pain. rating it 8/10 at the pacemaker site and requesting PRN Magdalena, administered per JAN.
~2130 pt BP 174/100, PRN hydralazine administered.
~2330 pt c/o continued pain at the pacemaker site rating it 7/10. Site w/ no swelling, bleeding, or hematoma noted at this time. Mariela Gamez NP made aware. PER DIEM NURSE ordered Tramadol. Administered per order.
~0050 pt BP 178/96. reached out to Mariela Gamez NP. Additional order for Hydralazine obtained and administered--see JAN. pt reporting pain meds didn't help and pain is still a 7/10. EDNA Sierra in room to assess pt. Order for Dilaudid obtained.
~0300 pt c/o 10/10 pain in left pacemaker site. Reached out to STEPHANE Cordon to assess pt. CVPA noted soft hematoma under pressure dressing and re-enforced dressing. Additional dose of Dilaudid ordered. pt reports having pain relief at this
time and rates it a 6/10.
[2025-08-22] MEDS: ATIVAN 0.5 MG PO ×2 (06:18→21:57)
[2025-08-22] MEDS: ROXICODONE 10 MG PO ×4 (06:18→21:50)
[2025-08-22] MEDS: LIPITOR 80 MG PO (07:44)
[2025-08-22] MEDS: ASPIR LOW (ENTERIC COATED) 81 MG PO (07:44)
[2025-08-22] MEDS: COREG 3.125 MG PO (07:44)
[2025-08-22] MEDS: IMDUR (EXTENDED RELEASE) 30 MG PO (07:44)
[2025-08-22] MEDS: ALPHAGAN 0.2% EYE DROPS 1 DROP RIGHT EYE ×2 (07:49→19:47)
[2025-08-22] MEDS: PROCARDIA XL (EXTENDED RELEASE) 60 MG PO ×2 (07:52→19:50)
[2025-08-22] MEDS: DEMADEX 10 MG PO (07:52)
--- NOTE | 2025-08-22 08:02 | W.PN.CD ---
Today's Communication / Plan
-
- Pain control
- Hematoma support
- pressure dressing
- Coreg dose increase to 12.5 mg BID.
- If better might be able to go home.
Impression / Plan
-
Dimitri is a 70 year old male with a past medical history of CAD s/p STEMI w/ LAD stenting x3, now on DAPT, hypertension, poorly controlled IDDM, hyperlipidemia who presented from home after being called by Economic Geographer for concerns of complete heart
block/bradycardia found on [employer] surveillance monitor.
# Complete Heart Block
- s/p dual chamber PPM on 08/21/25
- Now A sensed and V paced 100%.
- Reported severe pain at the PPM pocket overnight and was treated with oxycodone.
- still reports 5/10 pain - reduced from 10/10.
- Pressure dressing was placed with small hematoma
- Hematoma was again checked personally this AM
- Small and tender pocket.
- With hematoma present, a pressure dressing was placed again.
- Tele monitoring
- Resume BB - Coreg post PPM implant.
HTN
- Poorly controlled with resumption of home meds
- could be elevated due to pain but this am pain is much better and BP is still 170s/90s.
- Will increase Creg from 3.125 mg bid to 12.5 mg BID
# CAD, s/p STEMI w/ LAD stenting
- Holding Plavix, last dose morning 08/20. will resume ASA
# HLD
- C/w statin
Physical Exam
Vital Signs/Labs
Vital Signs
Temp Pulse Resp BP Pulse Ox
98.4 F 88 18 170/90 95
08/22/25 02:54 08/22/25 06:00 08/22/25 02:54 08/22/25 05:17 08/22/25 02:54
08/21/25 08/22/25 08/23/25
06:59 06:59 06:59
Actual Weight 111.4 kg
08/22/25 03:22
08/22/25 03:22
Magnesium 1.8 mg/dl (1.6-2.3) 08/22/25 03:22
Triglycerides 186 mg/dl (10-149) H 08/21/25 02:47
LDL Cholesterol, Calc 27 mg/dl 08/21/25 02:47
VLDL Cholesterol, Calc 37 mg/dl (0-30) H 08/21/25 02:47
HDL Cholesterol 36 mg/dl 08/21/25 02:47
LAB Results
08/20/25
10:35
Troponin I 0.022
Physical Exam
Constitutional: No acute distress and Comfortable
EENT: Anicteric and Moist mucous membranes
Cardiovascular: Rhythm & rate is regular, Pedal edema is absent, JVD pressure is normal and Systolic murmur present
Respiratory: Respiratory effort normal, Lungs clear to auscul. and Wheeze Absent
GI: Soft, Distention absent, Non tender and Normal bowel sounds
Neuro/Psych: Alert, Oriented and Motor deficits absent
Other: Cardiac Device Site
Data Reviewed
-
Date of Service: August 22, 2025
Medical Decision Making: Reviewed Test Results, Test Interpretation and Review of Case with other Provider
EKG: Tracing Personally Visualized and interpreted
Labs: Labs Reviewed by me
Old Records: Reviewed
[2025-08-22 08:03] LABS: Glucose - Point of Care 201 mg/dl (70-99)
[2025-08-22] MEDS: NOVOLOG FLEXPEN-MODERATE RESISTANCE 3 UNITS SC (08:24)
[2025-08-22] MEDS: TRUSOPT 2% OPHTHALMIC SOLUTION 1 DROP RIGHT EYE ×2 (08:25→19:47)
[2025-08-22] MEDS: DIOVAN 320 MG PO (08:27)
[2025-08-22] MEDS: GLUCOPHAGE XR EXTENDED RELEASE 1000 MG PO ×2 (09:40→19:48)
[2025-08-22] MEDS: JANUVIA 50 MG PO ×2 (09:41→19:50)
--- NOTE | 2025-08-22 11:03 | W.PN.HOSP.TC ---
Today's Communication/Plan
-
Janumet resumed
Coreg antibiotic resumed
Resume Plavix when okay with cardiology
Discharge plans per cardiology
Assessment / Plan
Assessment / Plan
70-year-old with Bradycardia. He was given a Holter monitor which picked up third-degree heart block and was advised to come to the hospital.
CVS: S1-S2 [facility]
Chest: CTA B/L
Abdomen: Soft, NT / Bowel sounds present
Extremities: No edema, normal pulses
mild bleeding at the pacemaker site
# Bradycardia with complete heart block
Status post pacemaker placementon 08/21/2025
Patient states that he had a lot of pain overnight
He takes oxycodone at home developing tolerance maybe slightly low
# History of coronary artery disease, [place] with LAD stents in 2022-continue statin, Imdur, valsartan, Coreg restated. Restart Plavix when OK with cards.
# Diabetes hemoglobin A1c-
Patient is on Janumet, Insulin degludec 30 units daily, Trulicity 3 mg on
Restarted Janumet.
Long-acting insulin 27 units at bedtime along with sliding scale coverage for now
If patient can bring Trulicity from home and be given here
# Hyperlipidemia-continue atorvastatin
# Hypertension-continue nifedipine, valsartan,Coreg
# Chronic abdominal pain with narcotic dependence-continue as needed
# Stage IV melanoma in 2000 with mets to lung, small intestine, left inguinal area with partial lung resection, chemotherapy and a trial drug for 12 months and in full remission
# H/O retinal detachment right eye
?Glaucoma-hold dorzolamide-restart timolol continue latanoprost, brimonidine
# Anxiety-continue as needed lorazepam
# Obesity with a BMI of 35
# DVT prophylaxis- DONA
# Full code
D/W RN
Part of this note was created using voice recognition system. Occasional wrong word or��sound alike� substitutions may have inadvertently occurred due to the inherent limitations of voice recognition software. If noted kindly bring it to my
attention for correction.
Anticipated Discharge: Within 24 hours
Subjective/Interval History
-
Date of Service: August 22, 2025
Objective Data
-
Labs:
Laboratory Results
08/22/25
03:22
WBC 9.9
Hgb 14.4
Hct 41.1
Plt Count 187
Sodium 142
Potassium 3.7
Chloride 108 H
Carbon Dioxide 23
BUN 17
Creatinine 1.1
Glucose 167 H
Calcium 9.2
Vital Signs:
Vital Signs
Temp Pulse Resp BP Pulse Ox
98.4 F 88 18 170/90 97
08/22/25 02:54 08/22/25 06:00 08/22/25 02:54 08/22/25 05:17 08/22/25 08:00
I&O
08/21/25 08/22/25 08/23/25
06:59 06:59 06:59
Intake Total 360 / 360 960 / 960
Balance 360 / 360 960 / 960
--- NOTE | 2025-08-22 11:15 | PTCARENOTE ---
Pt received this am with some c/o of pain at incision site but states he feels better. Dr. Padilla in and removed the pressure dressing and assessed the site leaving the aquacell dressing and then replacing the pressure dressing back on. Pt stated
he didn't sleep most of the night and is presently sleeping with no c/o of pain at this time.
[2025-08-22 11:59] LABS: Glucose - Point of Care 309 mg/dl (70-99)
[2025-08-22] MEDS: SENOKOT 17.2 MG PO ×2 (12:29→19:48)
[2025-08-22] MEDS: NOVOLOG FLEXPEN-MODERATE RESISTANCE 7 UNITS SC (12:30)
--- NOTE | 2025-08-22 16:24 | CM ---
Reviewed chart. Met with Mr. Levine to review discharge plans. He states he is feeling better today. We reviewed [facility] and he is agreeable to [facility]. He has selected [facility]. Telephone call to [facility]
to make the referral. Sent the referral. Prior to admission he has a roommate currently staying with him. He resides in a one story with three steps to enter. He states prior to admission he was independent with ambulation and adls. Medical
work-up in progress. The discharge plan is to return home with [facility] when medically stable.
[2025-08-22 18:04] LABS: Glucose - Point of Care 256 mg/dl (70-99)
[2025-08-22] MEDS: NOVOLOG FLEXPEN-MODERATE RESISTANCE 5 UNITS SC (18:21)
[2025-08-22] MEDS: COREG 12.5 MG PO (19:49)
[2025-08-22] MEDS: TIMOPTIC 0.5% OPHTHALMIC SOLUTION 1 DROP RIGHT EYE (19:50)
[2025-08-22 21:46] LABS: Glucose - Point of Care 232 mg/dl (70-99)
[2025-08-22] MEDS: LANTUS 0.26 UNITS SC (21:51)
[2025-08-22] MEDS: XALATAN OPHTHALMIC SOLUTION 1 DROP RIGHT EYE (21:59)
[2025-08-23 04:54] VITALS: BP 156/92
--- NOTE | 2025-08-23 05:13 | PTCARENOTE ---
Assumed care on pt at 1900, aaox3, denied cp or SOB. V paced on tele, HR 80's. Gabby 10 mg given at bedtime with + effect for mod discomfort from incision site. Slept well throughout night. Pt educated on LUE restrictions and verbalizes
understanding, pressure dressing clean and intact, no signs of bleeding, bruising or swelling noted around pressure dressing. Call dorado within reach.
[2025-08-23 05:24] LABS: Hematocrit 36.5 % (39.0-52.0); Hemoglobin 12.7 g/dL (13.0-18.0); Mean Corp Hgb Conc. 34.8 g/dL (33.0-37.0); Mean Corpuscular Volume 83.5 fL (80.0-94.0); Nucleated Red Blood Cells % 0 % (-); Platelet Count 158 10^3/uL (130-400); Red Cell Dist. Width 13.0 % (11.5-14.5)
[2025-08-23 05:38] VITALS: BMI 34.5
[2025-08-23] MEDS: JANUVIA 50 MG PO (07:41)
[2025-08-23] MEDS: DIOVAN 320 MG PO (07:41)
[2025-08-23] MEDS: COREG 12.5 MG PO (07:41)
[2025-08-23] MEDS: SENOKOT 17.2 MG PO (07:41)
[2025-08-23] MEDS: ASPIR LOW (ENTERIC COATED) 81 MG PO (07:42)
[2025-08-23] MEDS: TRUSOPT 2% OPHTHALMIC SOLUTION 1 DROP RIGHT EYE (07:43)
[2025-08-23] MEDS: LIPITOR 80 MG PO (07:43)
[2025-08-23] MEDS: GLUCOPHAGE XR EXTENDED RELEASE 1000 MG PO (07:43)
[2025-08-23] MEDS: IMDUR (EXTENDED RELEASE) 30 MG PO (07:43)
[2025-08-23 07:45] VITALS: BP 178/102
[2025-08-23] MEDS: ALPHAGAN 0.2% EYE DROPS 1 DROP RIGHT EYE (07:45)
--- NOTE | 2025-08-23 07:48 | PN.CDI ---
CDI
- -
CDI:
Physician Documentation Request
Admit Date: 08/20/25 14:29
Dear Doctor Eileen,
Please review the following and provide your response in the progress notes.
Clinical Indicators:
- Patient admit for complete heart block, s/p pacemaker placement
- Systolic BP intermittently 180-190s
- IV Hydralazine given x 4
- 08/22 Cardiology 'HTN...Poorly controlled' Coreg increased
- 08/22 PN 'hypertension'
Please clarify which, if any of the following, is a more accurate diagnosis reflecting the type and acuity of the documented hypertension:
Essential primary hypertension only
Hypertensive Urgency - B/P is severely elevated (systolic > or = to 180 or diastolic > or = to 110) but there is no associated organ damage. Symptoms may include: headache, shortness of breath, nosebleeds, severe anxiety. Treatment usually consists
of addition to or adjusting of oral medications and does not generally necessitate hospitalization.
Hypertensive Emergency - B/P is severely elevated (systolic > or = to 180 or diastolic > or = to 110) but can occur at lower levels especially in patients who did not previously have high B/P. There is usually associated organ damage. Symptoms may
include: memory loss, LOC, CVA, CO, angina, renal failure, pulmonary edema. Generally requires more aggressive treatment and a hospitalization.
Hypertensive Crisis - an acute elevation in B/P that can lead to organ damage. Broad term that is further differentiated to include urgency or emergency based on presence of organ damage.
Other (please specify)
Use of terms such as suspected, likely, concern for, or probable (associated with a specific diagnosis that is being evaluated, monitored, or treated as if it exists) are acceptable and can be coded in the inpatient setting, when documented at the
time of discharge.
Thank you,
Shana Cedeno RN
CDI Specialist
Please use your independent medical judgment in providing your response.
--- NOTE | 2025-08-23 07:53 | PN.CDI ---
CDI
- -
CDI:
Physician Documentation Request
Admit Date: 08/20/25 14:29
Dear Doctor Eileen,
Please review the following and provide your response in the progress notes.
Clinical Indicators:
- Patient admit for complete heart block, s/p pacemaker placement
- Systolic BP intermittently 180-190s
- IV Hydralazine given x 4
- 08/22 Cardiology 'HTN...Poorly controlled' Coreg increased
- 08/22 PN 'hypertension'
Selected Entries
08/20/25
10:01 08/20/25
18:22 08/20/25
20:21
Blood pressure 195/98 192/107 187/78
08/21/25
03:27 08/21/25
15:30 08/21/25
16:00
Blood pressure 196/76 191/100 194/113
Please clarify which, if any of the following, is a more accurate diagnosis reflecting the type and acuity of the documented hypertension:
Essential primary hypertension only
Hypertensive Urgency - B/P is severely elevated (systolic > or = to 180 or diastolic > or = to 110) but there is no associated organ damage. Symptoms may include: headache, shortness of breath, nosebleeds, severe anxiety. Treatment usually consists
of addition to or adjusting of oral medications and does not generally necessitate hospitalization.
Hypertensive Emergency - B/P is severely elevated (systolic > or = to 180 or diastolic > or = to 110) but can occur at lower levels especially in patients who did not previously have high B/P. There is usually associated organ damage. Symptoms may
include: memory loss, LOC, CVA, ME, angina, renal failure, pulmonary edema. Generally requires more aggressive treatment and a hospitalization.
Hypertensive Crisis - an acute elevation in B/P that can lead to organ damage. Broad term that is further differentiated to include urgency or emergency based on presence of organ damage.
Other (please specify)
Use of terms such as suspected, likely, concern for, or probable (associated with a specific diagnosis that is being evaluated, monitored, or treated as if it exists) are acceptable and can be coded in the inpatient setting, when documented at the
time of discharge.
Thank you,
Shana Cedeno RN
CDI Specialist
Please use your independent medical judgment in providing your response.
[2025-08-23 08:10] LABS: Glucose - Point of Care 154 mg/dl (70-99)
[2025-08-23] MEDS: NOVOLOG FLEXPEN-MODERATE RESISTANCE 1 UNITS SC ×2 (08:45→13:00)
[2025-08-23] MEDS: TIMOPTIC 0.5% OPHTHALMIC SOLUTION 1 DROP RIGHT EYE (08:46)
[2025-08-23] MEDS: PROCARDIA XL (EXTENDED RELEASE) 60 MG PO (08:49)
[2025-08-23] MEDS: DEMADEX 10 MG PO (08:49)
--- NOTE | 2025-08-23 10:30 | W.PN.HOSP.TC ---
Addendum entered and electronically signed by Ralf Arellano MD 08/23/25 13:49:
I tried to call the patient's son number does not seem to be right, not able to get through
Addendum entered and electronically signed by Ralf Arellano MD 08/23/25 13:40:
Discussed with cardiology. Okay for discharge.
Patient to discussed with outpatient brush loader and handle attacher or primary regarding whether to continue Plavix
More than 30 minutes spent in discharge including
Final examination of the patient
Summarizing hospital stay
Instructions for continuing care to all relevant caregivers
Preparation of discharge records, prescriptions, and referral forms
Original Note:
Today's Communication/Plan
-
Await cardiology rounds
Possible discharge today
Assessment / Plan
Assessment / Plan
70-year-old with Bradycardia. He was given a Holter monitor which picked up third-degree heart block and was advised to come to the hospital.
CVS: S1-S2 [facility]
Chest: CTA B/L
Abdomen: Soft, NT / Bowel sounds present
Extremities: No edema, normal pulses
mild bleeding at the pacemaker site-under Aquacel
Said he had a bowel movement yesterday
# Bradycardia with complete heart block
Status post pacemaker placement on 08/21/2025
Pain is better
He takes oxycodone at home developing tolerance maybe slightly low
# History of coronary artery disease, [place] with LAD stents in 2022-continue statin, Imdur, valsartan, Coreg restated. Restart Plavix when OK with cards.
# Diabetes hemoglobin A1c-10.0
Patient is on Janumet, Insulin degludec 30 units daily, Trulicity 3 mg on
Restarted Janumet.
Long-acting insulin 20 units at bedtime along with sliding scale coverage for now
If patient can bring Trulicity from home and be given here
# Hyperlipidemia-continue atorvastatin
# Hypertension-continue nifedipine, valsartan,Coreg
# Chronic abdominal pain with narcotic dependence-continue as needed. Had a bowel movement yesterday
# Stage IV melanoma in 2000 with mets to lung, small intestine, left inguinal area with partial lung resection, chemotherapy and a trial drug for 12 months and in full remission
# H/O retinal detachment right eye
?Glaucoma- dorzolamide-restart timolol continue latanoprost, brimonidine
# Anxiety-continue as needed lorazepam
# Obesity with a BMI of 35
# DVT prophylaxis- DONA
# Full code
D/W RN
Part of this note was created using voice recognition system. Occasional wrong word or��sound alike� substitutions may have inadvertently occurred due to the inherent limitations of voice recognition software. If noted kindly bring it to my
attention for correction.
Anticipated Discharge: Today
Subjective/Interval History
-
Date of Service: August 23, 2025
Objective Data
-
Labs:
Laboratory Results
08/23/25
04:59
WBC 8.4
Hgb 12.7 L
Hct 36.5 L
Plt Count 158
Vital Signs:
Vital Signs
Temp Pulse Resp BP Pulse Ox
98.7 F 83 18 178/102 97
08/23/25 08:05 08/23/25 07:49 08/23/25 08:05 08/23/25 07:45 08/23/25 08:05
I&O
08/22/25 08/23/25 08/24/25
06:59 06:59 06:59
Intake Total 960 / 960
Balance 960 / 960
--- NOTE | 2025-08-23 11:04 | CM ---
Reviewed chart. Met with Mr. Levine to review discharge plans. He states he is feeling better and is ready to go home. We reviewed [facility] and he is still agreeable to [facility]. Prior to admission he has a roommate
currently staying with him. He resides in a one story with three steps to enter. He states prior to admission he was independent with ambulation and adls. Medical work-up in progress. The discharge plan is to return home with [facility] when medically stable.
[2025-08-23 11:45] VITALS: BP 154/89
[2025-08-23 12:46] LABS: Glucose - Point of Care 197 mg/dl (70-99)
--- NOTE | 2025-08-23 13:13 | W.PN.UPDATE ---
Update Note
Progress Note Update
The patient was seen and examined. The pacemaker site is good. Mild fullness. No bleeding. Telemetry good. EKG good. Chest x-ray good.
Okay to resume prior medications including beta-adriana and Plavix. Ask him to discuss if long-term Plavix is needed. He is remote from coronary stenting.
Cardiology will sign off. Please call with questions.
--- NOTE | 2025-08-23 13:38 | W.DS.TRANS ---
Addendum entered and electronically signed by Ralf Arellano MD 08/23/25 13:48:
Dictation- [id number]
Original Note:
DC Summary - Project Development Manager
-
Discharge Instructions:
Discharge Diagnosis/Procedures Heart block, post Pacemaker placement on
2023
Diabetes
High cholesterol
Hypertension
Chronic abdominal pain
History of melanoma
History of retinal detachment
Anxiety
Diet Diabetic, Carb Controlled,Low Cholesterol
Driving Restrictions No driving for 1 week
Bathing Restrictions OK to Shower
Other Services VN
Instructions:
Stand-Alone Forms: DC Inst - Implanted Device
Changes to Home Medications: Yes
Discharge Medications:
DC Medications w/original date entered in [employer]
aspirin 81 mg tablet,delayed release 81 mg PO DAILY Blood Clot Prevention/Tx 03/19/11
atorvastatin 80 mg tablet 80 mg PO DAILY High Cholesterol 08/20/25
brimonidine 0.2 % eye drops 1 drp RIGHT EYE BID Eye Condition 08/20/25
clopidogrel 75 mg tablet 75 mg PO DAILY Blood Clot Prevention/Tx 08/20/25
Held on 08/23/25. Instructions: Resume on 08/24/25.
dorzolamide 22.3 mg-timolol 6.8 mg/mL eye drops 1 drp RIGHT EYE BID Eye Condition 08/20/25
dulaglutide 3 mg/0.5 mL subcutaneous pen injector (Trulicity) 3 mg SC TH Diabetes 08/20/25
isosorbide mononitrate 30 mg tablet,extended release 24 hr 30 mg PO DAILY Heart Disease/Condition 08/20/25
latanoprost 0.005 % eye drops 1 drp RIGHT EYE HS Eye Condition 08/20/25
lorazepam 0.5 mg tablet 0.5 mg PO TIDPRN PRN anxiety 08/20/25
nifedipine 60 mg tablet,extended release 60 mg PO BID Heart Disease/Condition 08/20/25
oxycodone-acetaminophen 10 mg-325 mg tablet 1 tab PO TID PRN mod pain 08/20/25
sitagliptin phos 50 mg-metformin ER 1,000 mg tablet,extend rel 24h mp (Janumet XR) 1 tab PO BID Diabetes 08/20/25
torsemide 10 mg tablet 10 mg PO DAILY Fluid Retention/Swelling 08/20/25
valsartan 320 mg tablet 320 mg PO DAILY Heart Disease/Condition 08/20/25
carvedilol 3.125 mg tablet 12.5 mg (4 x 3.125 mg) PO BID Heart disease/condition #60 tabs 08/23/25
insulin degludec 100 unit/mL (3 mL) subcutaneous pen 32 unit (0.32 mL) SC HS Diabetes #0 mL 08/23/25
sennosides 8.6 mg tablet (Mey-deb) 17.2 mg (2 x 8.6 mg) PO HS Constipation #0 tabs 08/23/25
Home Medication Changes
Senokot is new
Coreg dose increased
Insulin degludec changed to at bedtime
Pending Results: No
--- NOTE | 2025-08-23 15:14 | PTCARENOTE ---
Pt received this am oob ad zay. Denies any pain requiring pain medication. Room air sat 98%. Left chest pressure dressing removed. Aqucell intact. Pt discharged to home with his friend. Discharge instructions given and reviewed with good
understanding and all questions answered.
== END 2025-08-23 15:18 | disposition home health service (06) | DRG 244 ==
LOC: IVU 14:29
PROVIDERS: Clinical Nurse Specialist Family Health; Internal Medicine Cardiovascular Disease; ADMITTING PHYSICIAN Hospitalist; ATTENDING PHYSICIAN Hospitalist; CONSULT PHYSICIAN Student in an Organized Health Care Education/Training Program; EMERGENCY PHYSICIAN Emergency Medicine; FAMILY PHYSICIAN Family Medicine
PROC: 02HK3JZ Insertion of Pacemaker Lead into Right Ventricle, Percutaneous Approach (ICD-10-PCS; 2025-08-21)
PROC: 0JH606Z Insertion of Pacemaker, Dual Chamber into Chest Subcutaneous Tissue and Fascia, Open Approach (ICD-10-PCS; 2025-08-21)
PROC: 02H63JZ Insertion of Pacemaker Lead into Right Atrium, Percutaneous Approach (ICD-10-PCS; 2025-08-21)
DX: I44.2 Atrioventricular block, complete (principal); E78.00 Pure hypercholesterolemia, unspecified; I10 Essential (primary) hypertension; G89.29 Other chronic pain; Z85.820 Personal history of malignant melanoma of skin; F41.9 Anxiety disorder, unspecified; H54.61 Unqualified visual loss, right eye, normal vision left eye; I25.118 Atherosclerotic heart disease of native coronary artery with other forms of angina pectoris; I25.2 Old myocardial infarction; Z95.5 Presence of coronary angioplasty implant and graft; Z92.21 Personal history of antineoplastic chemotherapy; Z85.118 Personal history of other malignant neoplasm of bronchus and lung; E66.812 Obesity, class 2; Z68.34 Body mass index [BMI] 34.0-34.9, adult; Z91.041 Radiographic dye allergy status; Z79.899 Other long term (current) drug therapy; Z79.82 Long term (current) use of aspirin; Z79.4 Long term (current) use of insulin; Z79.02 Long term (current) use of antithrombotics/antiplatelets; Z79.891 Long term (current) use of opiate analgesic; E11.65 Type 2 diabetes mellitus with hyperglycemia; I49.2 Junctional premature depolarization
CPT/HCPCS: 33208; 71045; 80048; 80053; 80061; 82962; 83036; 83735; 84484; 85025; 93005; 99284; C1769; C1785; C1898; Q9967